=== PATIENT | female | born 1985 | race Asian ===

== ENCOUNTER 2017-01-09 20:31 | Emergency (ER) | payer OTHER ==
[~2017-01-09] VITALS: Ht 162.6 cm; Wt 62.1 kg
[2017-01-09 21:06] LABS: ABSOLUTE BASOPHIL COUNT 0.1 /CUMM (0.0-0.2); ABSOLUTE EOSINOPHIL COUNT 0.2 /CUMM (0.0-0.7); ABSOLUTE LYMPH COUNT 2.9 /CUMM (1.2-3.4); ABSOLUTE MONOCYTE COUNT 0.5 /CUMM (0.10-0.60); BASOPHIL % 0.7 % (0.0-2.0); EOSINOPHIL % 2.6 % (0-5); GRANULOCYTE % 57.6 % (42.2-75.2); HEMATOCRIT 40.4 % (37-47); MEAN CORPUSCULAR HGB CONC 32.9 G/DL (33.0-37.0); MEAN CORPUSCULAR VOLUME 85.2 FL (81.0-99.0); MEAN PLATELET VOLUME 7.8 FL (7.4-10.4); PLATELET COUNT 325 /CUMM (130-400); RBC DISTRIBUTION WIDTH 13.4 % (11.5-14.5); RED BLOOD CELL CT 4.74 /CUMM (4.20-5.40); WHITE BLOOD CELL COUNT 8.6 /CUMM (4.8-10.8)
--- NOTE | 2017-01-09 21:07 | ED GI/GU/ABDOMINAL COMPLAINT ---
History of Present Illness General Chief Complaint: Female Urogenital Problems Stated Complaint: PT IS FEW WEEKS AND BLEEDING Source: patient, old records Exam Limitations: no limitations Vital Signs & Intake/Output Vital Signs & Intake/Output Vital Signs Date Time Temp Pulse Resp B/P Pulse O2 O2 Flow FiO2 Ox Delivery Rate 01/10 2232 98.2 87 20 100/58 99 Room Air 01/095 98.1 92 18 117/77 98 Room Air ED Intake and Output 01/10 0000 01/09 1200 Intake Total Output Total Balance Patient 137 lb Weight Allergies Coded Allergies: No Known Drug Allergies (02/26/16) Reconcile Medications [BETA HCG TITRE] BETA HCG TITRE 01/09/17: 3179 DX: THREATENED MISSCARRIAGE Triage Note: PT ?FEW WEEKS TO TRIAGE WITH C/O LOWER ABD CRAMPING AND VAGINAL BLEEDING STARTED 3HOURS BOTTOM BUFFER. + HOME TEST ON 12/31, PT DIDN'T SEE HER OBGYN YET. LMP 12/06. . Triage Nurses Notes Reviewed? yes LMP (ages 10-50): 12/06/15 ? y Is pt currently ? No Onset: Abrupt Duration: hour(s): (3), better, constant Timing: recent history Quality/Severity: cramping Severity Numbers: 3 Location: suprapubic Radiation: no radiation Activities at Onset: none Prior Abdominal Problems: none No Modifying Factors: none Associated Symptoms: denies HPI: 31-year-old female presents emergency room for evaluation playing of sudden onset of light vaginal bleeding associated with suprapubic abdominal cramping that she describes this feels similar to menstrual cramps that came on 3 hours prior to arrival. The patient states that she had a positive home test 9 days ago, and states her last menstrual cycle was December 16. She states her OFFICE TECHNICIAN is Dr. Niño whom she is scheduled to see in January for her first visit. She has not had an ultrasound confirming an IUP yet. The patient states she's otherwise been in her normal state of health. She denies any other abdominal pain or radiation of her symptoms no fever no chills no vaginal discharge. Patient has not taken anything for her pain and is declining anything when offered. The only medication she takes on a regular basis her vitamins. There is no dizziness lightheadedness palpitations chest pain or shortness of breath (RICKI WISEMAN) Past History Travel History Traveled to [place] past 21 day No Medical History Any Pertinent Medical History? 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 No (RICKI WISEMAN) Review of Systems Review of Systems Constitutional: Reports: see HPI. All Other Systems: Reviewed and Negative Comments Review of systems: See HPI, All other systems negative. Constitutional, no chills no fever, no malaise HEENT: no sore throat no congestion, no ear pain Cardiovascular: No chest pain , no palpitation , Skin, no rashes, no change in skin Respiratory: No dyspnea no cough no sputum no hemoptysis GI: No nausea no vomiting, no diarrhea, no bloating/constipation : No dysuria No hematuria, no frequency, no discharge Muscle skeletal: No joint pain, no back pain, no neck pain, Neurologic: no headache Psych: No stress Heme/endocrine: No bruising no bleeding Immunology: No lymphadenopathy, (RICKI WISEMAN) Physical Exam Physical Exam General Appearance: well developed/nourished, no apparent distress, alert Gastrointestinal: soft, non-tender Comments: Well-developed well-nourished person in no acute distress HEENT: Normal EENT exam; PERRL, EOMI, HEAD is atraumatic. moist mucous membranes. Neck: Supple,normal range of motion without pain or tenderness Back: Nontender, no CVA tenderness. Full range of motion Cardiovascular: Regular rate and rhythms no murmurs rubs Respiratory: Chest nontender.There were no bony deformities, no asymmetry. No respiratory distress. Patient speaking in full complete sentences. Breath sounds clear to auscultation bilaterally: NO W/R/R Abdomen: Soft, nontender nondistended, no appreciable organomegaly. Normal bowel sounds. No rebound/guarding Extremity: No edema, full range of motion of extremities Neuro: Alert oriented x3, motor sensory normal Skin: No appreciable rash on exposed skin, skin is warm and dry. Psych: Mood and affect is normal, memory and judgment is normal. Core Measures ACS in differential dx? No Severe Sepsis Present: No Septic Shock Present: No (RICKI WISEMAN) Progress Differential Diagnosis: inflamm bowel dis, intrauterine , ovarian cyst, ovarian torsion, perforated viscous, threatened AB, UTI/pyelo, THREATENED ECTOPIC Plan of Care: Orders Procedure Date/time Status URINALYSIS 01/09 2053 Complete PARTIAL THROMBOPLASTIN TIME 01/09 2037 Complete PROTHROMBIN TIME 01/09 2037 Complete HUMAN BETA HCG TITRE 01/09 2037 Complete COMPREHENSIVE METABOLIC PANEL 01/09 2037 Complete CBC WITHOUT DIFFERENTIAL 01/09 2037 Complete TYPE & SCREEN (NOT X-MATCH) 01/09 2037 Complete Laboratory Tests 01/09/172044: Anion Gap 11, Estimated GFR > 60, BUN/Creatinine Ratio 21.7, Glucose 89, Calcium 10.1, Total Bilirubin 0.3, AST 26, ALT 36, Alkaline Phosphatase 43, Total Protein 7.6, Albumin 4.6, Globulin 3.0, Albumin/Globulin Ratio 1.5, Beta HCG, Quant 3179.2, PT 10.7, INR 1.02, APTT 37, CBC w Diff NO MAN DIFF REQ, RBC 4.74, MCV 85.2, MCH 28.0, RDW 13.4, MPV 7.8, Gran % 57.6, Lymphocytes % 33.1, Monocytes % 6.0, Eosinophils % 2.6, Basophils % 0.7, Absolute Granulocytes 5.0, Absolute Lymphocytes 2.9, Absolute Monocytes 0.5, Absolute Eosinophils 0.2, Absolute Basophils 0.1, PUBS MCHC 32.9 L, Urine Color PINK H, Urine Clarity HAZY H, Urine pH 7.0, Ur Specific [place] 1.010, Urine Protein NEG, Urine Ketones NEG, Urine Nitrite NEG, Urine Bilirubin NEG, Urine Urobilinogen 0.2, Ur Leukocyte Esterase TRACE H, Ur Microscopic SEDIMENT EXAMINED, Urine RBC 25-50 H, Urine WBC 3-5 H, Ur Epithelial Cells FEW, Urine Bacteria FEW H, Urine Mucus RARE, Urine Hemoglobin LARGE H, Urine Glucose NEG Labs ordered old records reviewed patient is declining anything for pain when offered ultrasound ordered case discussed with Dr. Barnett 01/09/2017 9:58:04 PM discussed with the patient and her mother all her lab results pending ultrasound Case discussed with and signed out to ABRAHAN Rankin at 2300 pending ultrasound (RICKI WISEMAN) Diagnostic Imaging: Viewed by Me: Ultrasound. Discussed w/RAD: Ultrasound. Initial ED EKG: none Hand-Off Endorsed To: ABRAHAN VELEZ Endorsed Time: 2300 Pending: ultrasound (RICKI WISEMAN) Radiology Impression: u/s... possible missed ... full report below. Comments: PATIENT: VIDYA MARTINS PRESENT AGE: 31 PATIENT ACCOUNT NO: [id number] : 85 LOCATION: [facility] ORDERING PHYSICIAN: RICKI GAUTHIER SERVICE DATE: 01/09/17 EXAM TYPE: US - US TRANSVAG EXAMINATION: ULTRASOUND OF THE PELVIS CLINICAL INFORMATION: Bleeding, lower abdominal pain. COMPARISON: None. TECHNIQUE: Transabdominal and transvaginal pelvic ultrasound. A transvaginal study was performed in addition to the transabdominal study which did not yield an adequate examination of the uterus and ovaries due to superimposed distended gas-filled loops of bowel. FINDINGS: The uterus is normal in size and appearance, measuring 7.9 x 5.0 x 1.4 cm longitudinally, anteroposteriorly and transversely. The endometrium is thickened and mildly heterogeneous. Within the endometrial canal there is a tiny cystic structure measuring 0.6 x 0.3 x 0.5 cm. The endometrium measures up to approximately 1.0 cm in thickness. The cervical length is normal measuring 2.6 cm. Multiple cystic structures are identified associated with the cervix. The largest measures 1.6 cm. These are consistent with a rotated cysts. The ovaries bilaterally are visualized, with the right ovary measuring 2.6 x 1.6 x 2.0 cm and the left ovary measuring 2.0 x 1.4 x 2.0 cm. There is an isoechoic area within the left ovary measuring 0.9 cm in diameter with peripheral flow. The appearance is most suggestive of a corpus luteum. Normal arterial flow is demonstrated within the left ovary on Doppler interrogation. Normal arterial and venous flow is demonstrated of the right ovary. There is a moderate amount of complex free fluid within the pelvis. IMPRESSION: 1. No intrauterine visualized. Possible tiny gestational sac within the endometrial cavity. Findings may relate to a missed . Correlation with hCG levels is recommended. Close clinical follow-up recommended. 2. Essentially unremarkable ovaries bilaterally. Probable corpus luteum of the left ovary. 3. Moderate amount of free fluid within the pelvis which is complex, likely partially hemorrhagic. DICTATED BY: BETTE ROBISON MD DATE/TIME DICTATED:01/09/172338 PHYS THERAPIST:AYO DATE/TIME TRANSCRIBED:01/09/17 / 7127 CONFIDENTIAL, DO NOT COPY WITHOUT APPROPRIATE AUTHORIZATION. <Electronically signed in Other Vendor System> SIGNED BY: BETTE ROBISON MD 01/09/17 2037 (KELLEN FREIRE,KOBE Davila) Departure Departure Disposition: HOME OR SELF CARE Condition: Stable Clinical Impression Primary Impression: Threatened Referrals: PATIENT HAS NO PRIMARY CARE DR (PCP/Family) RAMONA FREIRE,MARIO Childress Additional Instructions: Follow-up with her shipwright Dr. Niño tomorrow. You will need to have repeat blood testing in 48-72 hours- Follow up with the [facility] in 48-72 hours to have repeat beta hcg level drawn- the prescription for this test is in your discharge paperwork. Return to the emergency room anytime sooner with any concerns or worsening of your symptoms Departure Forms: Customer Survey General Discharge Information Prescriptions: Current Visit Scripts [BETA HCG TITRE] (LIZZIE GAUTHIER,RICKI) Departure Comments 01/10/17, 0:01... discussed u/s results with patient.... pt feels safe for discharge and will follow up with dr. niño tomorrow and check hcg titers in 2 days. PA/MANAGER SUPPLY Co-Sign Statement Statement: ED Attending supervision documentation- [x] I saw and evaluated the patient. I have also reviewed all the pertinent lab results and diagnostic results. I agree with the findings and the plan of care as documented in the PA's/MANAGER SUPPLY's documentation. [] I have reviewed the ED Record and agree with the PA's/MANAGER SUPPLY's documentation. [] Additions or exceptions (if any) to the PAs/MANAGER SUPPLY's note and plan are summarized below: [] (KELLEN FREIRE,KOBE Davila)
[2017-01-09 21:22] LABS: PT 10.7 SEC (9.4-12.5); PTT 37 SEC (25-37)
[2017-01-09] MEDS ORDERED: [UNRECOGNIZED DRUG - REMARK] (21:59)
[2017-01-09 22:32] VITALS: BP 100/58
--- NOTE | 2017-01-09 23:50 | ULTRASOUND REPORT ---
EXAMINATION: ULTRASOUND OF THE PELVIS CLINICAL INFORMATION: Bleeding, lower abdominal pain. COMPARISON: None. TECHNIQUE: Transabdominal and transvaginal pelvic ultrasound. A transvaginal study was performed in addition to the transabdominal study which did not yield an adequate examination of the uterus and ovaries due to superimposed distended gas-filled loops of bowel. FINDINGS: The uterus is normal in size and appearance, measuring 7.9 x 5.0 x 1.4 cm longitudinally, anteroposteriorly and transversely. The endometrium is thickened and mildly heterogeneous. Within the endometrial canal there is a tiny cystic structure measuring 0.6 x 0.3 x 0.5 cm. The endometrium measures up to approximately 1.0 cm in thickness. The cervical length is normal measuring 2.6 cm. Multiple cystic structures are identified associated with the cervix. The largest measures 1.6 cm. These are consistent with a rotated cysts. The ovaries bilaterally are visualized, with the right ovary measuring 2.6 x 1.6 x 2.0 cm and the left ovary measuring 2.0 x 1.4 x 2.0 cm. There is an isoechoic area within the left ovary measuring 0.9 cm in diameter with peripheral flow. The appearance is most suggestive of a corpus luteum. Normal arterial flow is demonstrated within the left ovary on Doppler interrogation. Normal arterial and venous flow is demonstrated of the right ovary. There is a moderate amount of complex free fluid within the pelvis. IMPRESSION: 1. No intrauterine visualized. Possible tiny gestational sac within the endometrial cavity. Findings may relate to a missed . Correlation with hCG levels is recommended. Close clinical follow-up recommended. 2. Essentially unremarkable ovaries bilaterally. Probable corpus luteum of the left ovary. 3. Moderate amount of free fluid within the pelvis which is complex, likely partially hemorrhagic.
== END 2017-01-10 00:16 ==
LOC: ERH
PROVIDERS: Pediatrics
DX: O20.0 Threatened abortion (principal)
CPT/HCPCS: 76817; 81001